=== PATIENT | male | born 1975 | race Caucasian/White ===

== ENCOUNTER 2018-01-12 09:11 | Emergency (ER) | payer MEDICAID, OTHER ==
[~2018-01-12] VITALS: Ht 180.3 cm; Wt 112.5 kg
--- NOTE | 2018-01-12 09:38 | NUR ---
pt is in room #2b. dr Ivan evaluated the pt.
[2018-01-12] MEDS ORDERED: ONDANSETRON ODT 4 MG TAB.RAPDIS SL ONE (09:45)
[2018-01-12] MEDS ORDERED: KETOROLAC TROMETHAMINE 60 MG INJ IM ONE ×2 (09:45→09:52)
[2018-01-12] MEDS ORDERED: ONDANSETRON ODT 4 MG TAB.RAPDIS ONE (09:52)
--- NOTE | 2018-01-12 09:53 | NUR ---
PT WAS D/C TO HOME. D/C INSTRUCTIONS GIVEN TO THE PT.
[2018-01-12 09:55] VITALS: BP 135/79
== END 2018-01-12 09:55 | disposition home or self-care (01) ==
LOC: ER 09:11
DX: G43.909 Migraine, unspecified, not intractable, without status migrainosus (principal); F17.210 Nicotine dependence, cigarettes, uncomplicated
CPT/HCPCS: 93005; A4663; J1885; Q0162